=== PATIENT | male | born 1955 | race Caucasian/White ===

== ENCOUNTER 2020-02-08 06:02 | Emergency (ER) | payer MEDICARE, SELFPAY ==
[2020-02-08 06:06] VITALS: BP 148/98; PULSE 91; RESP 17; TEMP 36.6; O2SAT 99; BMI 32.6
[2020-02-08 06:15] VITALS: BP 148/98; PULSE 75; RESP 16; O2SAT 97
--- NOTE | 2020-02-08 06:17 | ED_ITS ---
HPI - Chest Pain General: Chief Complaint: Chest Pain Stated Complaint: cp Time Seen by Provider: 02/08/20 06:08 History of Present Illness: HPI narrative: 64-year-old male presents emergency room with complaint of chest pain. Patient reports chest pain began approximately 4 days ago he was lifting some heavy boxes out of a freezer he had some chest wall pain worse when he took a deep breath worse when he moved. It began to move over to the right side seemed to resolve for a few days and began again this morning he was diaphoretic difficult time taking a deep breath this morning as well. He denies any vomiting denies any diarrhea no other recent illness no respiratory symptoms. He denies fever or chills. He has had some diaphoresis with it. No other recent illness. Patient is diabetic. He denies any previous stress testing. MD complaint: chest pain Pertinent past history: other (Diabetes mellitus) Onset (ago): day(s) (4) Timing of current episode: episodic Prior episodes: Yes Onset: during exertion Pain location: left chest and right chest Pain radiation: none and other Severity: moderate Quality: sharp Relieving factors: nothing Exacerbating factors: palpation and movement Context: trauma/injury (Began after lifting heavy boxes 4 days ago) Associated symptoms: Reports diaphoresis; Deny dyspnea, fever(s), leg edema, nausea, palpitations, syncope or vomiting Treatment prior to arrival: none Review of Systems Const: Reports: diaphoresis; Denies: fever(s) ENMT: Denies: throat pain, ear or mastoid pain, nasal discharge or nasal congestion Card: Denies: palpitations or syncope Resp: Denies: dyspnea GI: Denies: nausea or vomiting : Denies: flank pain, dysuria, urinary frequency or urinary urgency Skin/Breast: Denies: rash or pruritus PFS ED PFSH: Medical History (Updated 02/08/20 @ 09:08 by Gallo Joyner DO) History of skin cancer Recently excised. Patient is not sure of the exact type of cancer but states he does not need any further treatments. Hyperlipidemia Hypertension Type 2 diabetes mellitus Surgical History (Updated 02/08/20 @ 06:55 by Gallo Joyner DO) History of meniscectomy of left knee History of meniscectomy of right knee Social History (Updated 02/08/20 @ 06:54 by SRIRAM Owen Smoking and tobacco status: never smoked Alcohol intake: current Alcohol intake frequency: 0-2 Drinks per Day Physical Exam Const: COMMON NORMALS: no acute distress GENERAL APPEARANCE: cooperative and comfortable ORIENTATION/CONSCIOUSNESS: Yes awake, Yes oriented to person, Yes oriented to place and Yes oriented to time HENMT: COMMON NORMALS: normocephalic, atraumatic, hearing grossly normal bilaterally, external ears normal, EAC's normal, TM's normal bilaterally, Normal nasal mucous membranes and turbinates present, moist oral mucous membranes and oropharynx normal HEAD & SCALP: normocephalic and atraumatic NOSE: Normal nasal mucous membranes and turbinates present EXTERNAL EAR: Yes external ears normal EXTERNAL AUDITORY CANAL: EAC's normal TYMPANIC MEMBRANE: TM's normal bilaterally Eye: COMMON NORMALS: Equal, round and reactive pupils present, EOMs intact bilaterally, conjunctivae normal and no scleral icterus CONJUNCTIVA: Yes conjunctivae normal PUPIL: Yes Equal, round and reactive pupils present Neck/C-Spine: COMMON NORMALS: full ROM, no lymphadenopathy, supple and no JVD Lymph: LYMPHATIC: no lymphadenopathy noted and no lymphedema noted Resp: COMMON NORMALS: normal respiratory effort, No retractions, No use of accessory muscles and clear to auscultation bilaterally AUSCULTATION: clear to auscultation bilaterally Cardio: COMMON NORMALS: no JVD, regular rate, regular rhythm and No murmurs present (Cardio) RATE: regular rate RHYTHM: regular rhythm GI: COMMON NORMALS: Soft to palpation and No hepatosplenomegaly present AUSCULTATION: Yes normoactive bowel sounds PALPATION: Yes Soft to palpation, No Tenderness to palpation present (GI), No Guarding due to palpation present (GI) and Yes No hepatosplenomegaly present Extremity: COMMON NORMALS: normal to inspection, capillary refill normal, no clubbing, cyanosis or edema, no calf tenderness and no pedal edema Neuro: SENSORIUM/ORIENTATION: Yes oriented to person, Yes oriented to place and Yes oriented to time Skin: COMMON NORMALS: no rashes or lesions noted GENERAL SKIN EXAM: no rashes or lesions noted Course Vital Signs: Vital signs: Vital Signs Temperature 97.9 F 02/08/20 06:06 Pulse Rate 63 02/08/20 09:13 Respiratory Rate 18 02/08/20 09:13 Blood Pressure 145/85 02/08/20 09:13 Pulse Oximetry 97 02/08/20 09:13 MDM - Chest Pain MDM Narrative: Medical decision making narrative: Reviewed findings with the patient. We will start him on a baby aspirin daily set up for outpatient stress testing return if has worsening problems. Use Tylenol ibuprofen [id number] for the chest wall pain. Avoid heavy lifting and strenuous activities. Lab Data: Labs: Lab Results 02/08/20 02/08/20 02/08/20 Range/Units 06:11 06:11 06:11 WBC 14.2 H (4.0-10.0) 10^3/ uL RBC 5.84 H (4.1-5.3) 10^6/u L Hgb 16.9 H (11.7-16.6) g/dL Hct 50.9 (42.0-52.0) % MCV 87.2 (80-94) fL MCH 28.9 (28.0-34.0) pg MCHC 33.2 (30.0-36.0) g/dL RDW 12.7 (12.1-15.1) % Plt Count 324 (130-400) 10^3/c mm MPV 8.7 (7.4-10.4) fL Neut % (Auto) 75.6 % Lymph % (Auto) 14.7 % [place] % (Auto) 8.0 % Eos % (Auto) 0.6 % Baso % (Auto) 0.5 % Neut # (Auto) 10.74 H (1.8-7.7) 10^3/u L Lymph # (Auto) 2.1 (0.8-4.8) 10^3/u L [place] # (Auto) 1.1 H (0.2-0.9) 10^3/u L Eos # (Auto) 0.1 (0.0-0.8) 10^3/u L Baso # (Auto) 0.1 (0.0-0.1) 10^3/u L Nucleated RBC % (a uto) 0 % Nucleated RBCs # 0.0 /100WBC Sodium 137 (136-145) mmol/L Potassium 3.9 (3.5-5.1) mmol/L Chloride 99 (98-107) mmol/L Carbon Dioxide 24 (22-29) mmol/L Anion Gap 17.9 (5-19) BUN 17 (8-23) mg/dL Creatinine 0.9 (0.7-1.2) mg/dL GFR Calculation 84.7 L (90-130) mL/min Glucose 235 H (65-115) mg/dL Calculated Osmolal ity 288 (285-295) mOsm/k g Calcium 9.4 (8.5-10.5) mg/dL Total Bilirubin 1.8 H (0.15-1.2) mg/dL AST 15 (0-40) U/L ALT 14 (0-41) U/L Alkaline Phosphata se 93 (40-130) IU/L Troponin T Baselin e 10 (0-15) ng/L Troponin T 120 Min [place] (0-15) ng/L Delta Troponin T (0-10) ABS# Total Protein 8.6 (6.6-8.7) g/dL Albumin 5.0 (3.5-5.2) g/dL Globulin 3.6 (1.3-4.6) g/dL 02/08/20 Range/Units 08:02 WBC (4.0-10.0) 10^3/ uL RBC (4.1-5.3) 10^6/u L Hgb (11.7-16.6) g/dL Hct (42.0-52.0) % MCV (80-94) fL MCH (28.0-34.0) pg MCHC (30.0-36.0) g/dL RDW (12.1-15.1) % Plt Count (130-400) 10^3/c mm MPV (7.4-10.4) fL Neut % (Auto) % Lymph % (Auto) % [place] % (Auto) % Eos % (Auto) % Baso % (Auto) % Neut # (Auto) (1.8-7.7) 10^3/u L Lymph # (Auto) (0.8-4.8) 10^3/u L [place] # (Auto) (0.2-0.9) 10^3/u L Eos # (Auto) (0.0-0.8) 10^3/u L Baso # (Auto) (0.0-0.1) 10^3/u L Nucleated RBC % (a uto) % Nucleated RBCs # /100WBC Sodium (136-145) mmol/L Potassium (3.5-5.1) mmol/L Chloride (98-107) mmol/L Carbon Dioxide (22-29) mmol/L Anion Gap (5-19) BUN (8-23) mg/dL Creatinine (0.7-1.2) mg/dL GFR Calculation (90-130) mL/min Glucose (65-115) mg/dL Calculated Osmolal ity (285-295) mOsm/k g Calcium (8.5-10.5) mg/dL Total Bilirubin (0.15-1.2) mg/dL AST (0-40) U/L ALT (0-41) U/L Alkaline Phosphata se (40-130) IU/L Troponin T Baselin e (0-15) ng/L Troponin T 120 Min [place] 7.93 (0-15) ng/L Delta Troponin T -2.07 L (0-10) ABS# Total Protein (6.6-8.7) g/dL Albumin (3.5-5.2) g/dL Globulin (1.3-4.6) g/dL Discharge Plan Discharge Patient Disposition: Home, Self-Care Clinical Impression: Atypical chest pain, Type 2 diabetes mellitus, Hypertension, Hyperlipidemia Condition: Stable Prescriptions: New Adult Low Dose Aspirin 81 mg tablet,delayed release (DR/EC) 81 mg PO DAILY Qty: 30 RF: 0 Discharge Orders: Discharge Order (Routine); Ordered 02/08/20 Ordered By: Gallo Joyner Discharge Diet: Usual diet Discharge Activity: Limit activity as instructed Activity Restrictions/Additional Instructions: Tylenol or ibuprofen for the chest wall discomfort. Baby aspirin daily. Case management will call to set up stress testing. Discharge Date/Time: 02/08/20 09:14 Coding Level of Care Code ED [employer] Bonder for Mitesh Fwd Exam Comprehensive
--- NOTE | 2020-02-08 06:18 | XR_ITS ---
WS: [id number] PORTABLE CHEST HISTORY: Chest pain COMPARISON: None available. Lungs are clear and well expanded. No pleural effusion or pneumothorax. Cardiac size: Normal. Mediastinum/Aorta: Normal mediastinum. No osseous abnormality seen. XR/XR chest 1V portable [id number] IMPRESSION: Unremarkable portable chest.
--- NOTE | 2020-02-08 06:18 | ECG_ITS ---
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 Measurements Intervals [place] Rate: 80 P: 56 CA: 151 QRS: 12 QRSD: 102 T: 48 QT: 350 QTc: 404 Interpretive Statements SINUS RHYTHM No previous ECG available for comparison Electronically Signed On 02-09-2020 16:23:44 CDT by Lico Jacques M.D. [id number]
[2020-02-08] MEDS: ketorolac 30 mg/mL INJ 15 MG IVP (06:24)
[2020-02-08 06:33] LABS: Basophils # 0.1 10^3/uL (0.0-0.1); Basophils % 0.5 %; Eosinophils # 0.1 10^3/uL (0.0-0.8); Eosinophils % 0.6 %; Hematocrit 50.9 % (42.0-52.0); Hemoglobin 16.9 g/dL (11.7-16.6); Lymphocytes # 2.1 10^3/uL (0.8-4.8); Lymphocytes % 14.7 %; Mean Corpuscular HGB Conc 33.2 g/dL (30.0-36.0); Mean Corpuscular Hemoglobin 28.9 pg (28.0-34.0); Mean Corpuscular Volume 87.2 fL (80-94); Mean Platelet Volume 8.7 fL (7.4-10.4); Monocytes # 1.1 10^3/uL (0.2-0.9); Neutrophils # 10.74 10^3/uL (1.8-7.7); Neutrophils % 75.6 %; Nucleated Red Blood Cells % 0 %; Platelet Count 324 10^3/cmm (130-400); Red Blood Count 5.84 10^6/uL (4.1-5.3); Red Cell Distribution Width 12.7 % (12.1-15.1); White Blood Count 14.2 10^3/uL (4.0-10.0)
[2020-02-08 06:48] LABS: Alanine Aminotransferase 14 U/L (0-41); Alkaline Phosphatase 93 IU/L (40-130); Anion Gap 17.9 (5-19); Aspartate Amino Transferase 15 U/L (0-40); Blood Urea Nitrogen 17 mg/dL (8-23); Calcium 9.4 mg/dL (8.5-10.5); Carbon Dioxide 24 mmol/L (22-29); Chloride 99 mmol/L (98-107); Globulin 3.6 g/dL (1.3-4.6); Glomerular Filtration Rate 84.7 mL/min (90-130); Glucose 235 mg/dL (65-115); Osmolality Calculated 288 mOsm/kg (285-295); Potassium 3.9 mmol/L (3.5-5.1); Sodium 137 mmol/L (136-145); Total Bilirubin 1.8 mg/dL (0.15-1.2); Total Protein 8.6 g/dL (6.6-8.7)
--- NOTE | 2020-02-08 06:48 | PC.NURSE ---
REPORT GIVEN TO ALIA BOWERS FOR TRANSFER OF CARE FOR SHIFT CHANGE.
[2020-02-08 06:49] LABS: Troponin(5th) Baseline 10 ng/L (0-15)
[2020-02-08 06:56] VITALS: BP 130/77; PULSE 71; RESP 17; O2SAT 97
[2020-02-08 08:01] VITALS: BP 142/82; PULSE 72; RESP 18; O2SAT 98
--- NOTE | 2020-02-08 08:18 | ECG_ITS ---
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 Measurements Intervals [place] Rate: 67 P: 22 TX: 168 QRS: 3 QRSD: 97 T: 31 QT: 386 QTc: 409 Interpretive Statements SINUS RHYTHM Compared to ECG 02/08/2020 06:18:28 No significant changes Electronically Signed On 02-09-2020 16:28:25 CDT by Lico Jacques M.D. [email or web address]sg[facility] systemGreenTechnology Innovationspar[facility].[employer]/store/OM/[id number]
[2020-02-08 08:34] LABS: Troponin 5 2HR 7.93 ng/L (0-15)
[2020-02-08 08:38] LABS: Troponin 5 2HR Delta -2.07 ABS# (0-10)
[2020-02-08 09:13] VITALS: BP 145/85; PULSE 63; RESP 18; O2SAT 97
--- NOTE | 2020-02-08 15:40 | DCPLANNER ---
dental office manager had message to schedule an out patient stress test for patient. dental office manager called patient and confirmed that patient did want to schedule stress test and who patient sees for primary care. dental office manager faxed order to centralized scheduling. Will call for appointment information.
--- NOTE | 2020-02-10 14:48 | DCPLANNER ---
Patient has a stress test scheduled for Saturday, February 17, 2020 at 10:45.
--- NOTE | 2020-03-04 11:29 | DCPLANNER ---
Patient did attend stress test scheduled for 02.17.20.
== END 2020-02-08 09:14 | disposition home or self-care (01) ==
PROVIDERS: Emergency Provider Family Medicine
DX: R07.89 Other chest pain (principal); E11.9 Type 2 diabetes mellitus without complications; I10 Essential (primary) hypertension; E78.5 Hyperlipidemia, unspecified; Z85.828 Personal history of other malignant neoplasm of skin
CPT/HCPCS: 12345; 36415; 71045; 80053; 84484; 85025; 93005; 96374; 99283; 99284; J1885

== ENCOUNTER 2020-02-17 07:57 | Outpatient (CLI) | payer MEDICARE, SELFPAY ==
[2020-02-17 08:46] VITALS: BMI 33.0
--- NOTE | 2020-02-17 08:47 | ECG_ITS ---
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 Interpretive Statements NAME OF STUDY: LEXISCAN SESTAMIBI STRESS TEST INDICATION: Atypical Chest Pain, LEXISCAN STRESS TEST ORDERING PHYSICIAN: Kirsty CLINICAL INFORMATION: Chest pain INTERPRETATION: 1. The patient was brought to the laboratory where Lexiscan was infused over 20 seconds. The resting blood pressure was 151/84. Maximum blood pressure was 171/91. The resting heart rate was 58 beats per minute. The maximum heart rate is 100 beats per minute. 2. The baseline electrocardiogram reveals sinus rhythm and is a normal tracing 3. With Lexiscan infusion, there were no ST segment changes to suggest ischemia. 4. The patient experienced no symptoms or arrhythmias during the examination. CONCLUSION: 1. Unremarkable Lexiscan infusion. 2. Nuclear imaging to follow. Electronically Signed On 02-17-2020 18:11:11 CDT by Lico Jacques M.D. [email or web address] [email or web address]/[id number]
--- NOTE | 2020-02-17 08:50 | NMCV_ITS ---
NM zuhair perf SPECT r/s* [id number] Gilberto Paniagua Age: 64 Gender: M : 1955 Exam Date: 02/17/2020 08:50 Ordering Phys: Gallo Joyner DO Technologist: MAHOGANY Leonardo Exam Location: [facility] Indications: ATYPICAL CHEST PAIN STRESS TEST Please [facility] IMAGE PROTOCOL Rest/Stress 1 Lexiscan Day Radiopharmaceutical Dose (mCi) Administration Site Administered by Rest: Tc-99m 10.7 IV MAHOGANY Hightower Sestamibi Stress:Tc-99m 32.4 IV MAHOGANY Hightower Sestamibi Rest: 17-Feb-2020 60 Discovery 630 Stress: 17-Feb-2020 30 Discovery 630 0.4mg Lexiscan. Images obtained in supine and prone position. SPECT RESULTS Technical Quality: Excellent Raw Data Analysis: Normal Image Corrections: Patient motion artifact - motion correction applied to stress. Summed Stress Score: 3 Summed Rest Score: 3 Summed Difference Score: 1 PERFUSION FINDINGS Small sized perfusion abnormality of mild severity of mid to apical inferior wall on rest and supine stress images with subtle improved trace uptake in inferior wall on prone stress images. FUNCTIONAL RESULTS (calculated via Gated SPECT) Stress Image LV EF (%): 65 Stress EDV (mL):124 TID: 0.84 Stress ESV (mL):44 FUNCTIONAL FINDINGS: The left ventricle is normal in size. Transient Ischemia Dilatation of 0.84. There is normal left ventricular systolic function. The left ventricular ejection fraction is normal with a value of 65%. There is normal left ventricular wall thickening. IMPRESSIONS 1. Small sized perfusion abnormality of mild severity of mid to apical inferior wall with subtle improved trace uptake in inferior wall on prone stress images. 2. This may represent attenuation artifact or old myocardial infarction in right coronary artery territory. 3. Overall left ventricular systolic function is normal without regional wall motion abnormalities. 4. The left ventricular ejection fraction is normal with a value of 65%. 5. No coronary ischemia based on this study. Xochitl Bradley MD (Electronically Signed) Final Date: 21 February 2020 23:02 S
[2020-02-17 11:01] VITALS: BP 165/83; PULSE 96
== END 2020-02-17 07:58 | disposition home or self-care (01) ==
LOC: CDL 07:59
PROVIDERS: Visit Provider Family Medicine
DX: R07.89 Other chest pain (principal)
CPT/HCPCS: 78452; 93017; A9500; J2785

== ENCOUNTER → 2022-02-01 16:32 | Outpatient (BNVA) | payer MEDICARE, SELFPAY | PROVIDERS: Visit Provider Nurse Practitioner Family | DX: N50.812 Left testicular pain (principal); H91.93 Unspecified hearing loss, bilateral; G62.9 Polyneuropathy, unspecified; E11.8 Type 2 diabetes mellitus with unspecified complications; I10 Essential (primary) hypertension; E78.5 Hyperlipidemia, unspecified | CPT/HCPCS: 80053; 80061; 83036; 84153; 85025 ==

== ENCOUNTER 2022-02-02 07:39 | Outpatient (CLI) | payer MEDICARE, SELFPAY ==
--- NOTE | 2022-02-02 07:59 | US_ITS ---
WS: [id number] TESTICULAR ULTRASOUND HISTORY: LEFT TESTICULAR PAIN COMPARISON: None available. TECHNIQUE: Real-time and color Doppler imaging or utilized to perform a testicular ultrasound. Right testicle: 5.0 cm x 3.2 cm x 3.0 cm. Normal size and echogenicity. No mass or torsion. Normal color Doppler is present throughout. Systolic and diastolic velocities are both present. Moderate size mildly complex hydrocele. Right epididymis: Normal epididymis with no increased vascularity. Left testicle: 5.3 cm x 3.6 cm x 3.2 cm. Normal sized testicle but there is variable echogenicity throughout and marked increased vascularity. No mass identified. Small complex simple hydrocele. Left epididymis: Mild increased vascularity within the LEFT epididymis also. US/US scrotum 31001 IMPRESSION: 1. Moderate to severe acute LEFT epididymo-orchitis. 2. Small to moderate bilateral complex hydroceles.
== END 2022-02-02 07:40 | disposition home or self-care (01) ==
PROVIDERS: Visit Provider Nurse Practitioner Family
DX: N45.3 Epididymo-orchitis (principal); N43.3 Hydrocele, unspecified
CPT/HCPCS: 76870

== ENCOUNTER → 2022-02-27 15:21 | Outpatient (BNVA) | payer MEDICARE, SELFPAY | PROVIDERS: PCP Nurse Practitioner Family; Visit Provider Nurse Practitioner Family | DX: E87.6 Hypokalemia (principal) | CPT/HCPCS: 80053 ==